=== PATIENT | male | born 1980 | race Caucasian/White ===

== ENCOUNTER 2023-08-27 13:59 | Emergency (ER) | payer MEDICAID, SELFPAY ==
[~2023-08-27] VITALS: Ht 180.3 cm; Wt 87.6 kg
[2023-08-27 17:19] VITALS: BP 148/72; TEMP 97; O2SAT 100
[2023-08-27] MEDS: METHADONE 10MG TAB PO ONE (17:50)
== END 2023-08-27 17:54 | disposition home or self-care (01) ==
LOC: M ED 13:59
DX: Z76.0 Encounter for issue of repeat prescription (principal); F19.10 Other psychoactive substance abuse, uncomplicated; Z79.899 Other long term (current) drug therapy
CPT/HCPCS: 99283; S0109

== ENCOUNTER 2024-01-29 18:24 | Emergency (ER) | payer BC, SELFPAY ==
[~2024-01-29] VITALS: Ht 180.3 cm; Wt 83.7 kg
[2024-01-29 18:31] VITALS: BP 133/82; TEMP 98.2; O2SAT 97
== END 2024-01-29 20:48 | disposition left against medical advice (07) ==
LOC: M ED 18:24
DX: Z53.21 Procedure and treatment not carried out due to patient leaving prior to being seen by health care provider (principal)

== ENCOUNTER 2024-02-02 06:55 | Emergency (ER) | payer BC ==
[~2024-02-02] VITALS: Ht 180.3 cm; Wt 80.2 kg
[2024-02-02 07:00] VITALS: BP 160/110; TEMP 97.8; O2SAT 99
[2024-02-02] MEDS ORDERED: METH10CO PO (09:09)
[2024-02-03] MEDS ORDERED: PROT1TAB2 PO (21:52)
== END 2024-02-02 11:35 | disposition left against medical advice (07) ==
LOC: M ED 06:55
DX: Z53.21 Procedure and treatment not carried out due to patient leaving prior to being seen by health care provider (principal)

== ENCOUNTER 2024-02-02 08:59 | Emergency (ER) | payer BC ==
[~2024-02-02] VITALS: Ht 185.4 cm; Wt 80.2 kg
[2024-02-02] MEDS ORDERED: METH10CO PO (09:09)
[2024-02-02 10:20] LABS: BASO % 0.5 % (0.0-1.0); EOS # 0.1 10^3/uL (0.0-0.5); EOS % 1.1 % (0.0-3.0); HEMATOCRIT 42.2 % (42.0-52.0); HEMOGLOBIN 14.3 g/dl (13.5-17.5); LYMPH % 17.4 % (24.0-44.0); MEAN CORPUSCULAR HEMOGLOBIN 31.8 pg (27.0-33.0); MEAN CORPUSCULAR HGB CONC 33.9 g/dl (32.0-36.5); MONO # 0.5 10^3/uL (0.0-0.8); MONO % 8.8 % (2.0-8.0); NEUTROPHILS % 71.8 % (36.0-66.0); PLATELET COUNT, AUTOMATED 143 10^3/uL (150-450); RED BLOOD COUNT 4.49 10^6/uL (4.30-6.10); WHITE BLOOD COUNT 5.6 10^3/uL (4.0-10.0)
[2024-02-02 10:42] LABS: INR 1.01; PARTIAL THROMBOPLASTIN TIME 25.3 SECONDS (24.8-34.2)
[2024-02-02 10:44] LABS: LIPASE 31 U/L (12-53)
[2024-02-02 10:45] LABS: CK-MB VALUE MASS < 1.0 NG/ML (<3.6)
[2024-02-02 10:46] LABS: ALBUMIN 3.9 G/DL (3.2-5.2); ALKALINE PHOSPHATASE 91 U/L (46-116); ALT/SGPT 18 U/L (7.0-40); AST/SGOT 16 U/L (<34); BILIRUBIN,DIRECT 0.1 MG/DL (<0.4); BILIRUBIN,TOTAL 0.4 MG/DL (0.3-1.2); BLOOD UREA NITROGEN 13 MG/DL (9-23); CALCIUM LEVEL 9.1 MG/DL (8.5-10.1); CARBON DIOXIDE LEVEL 29 MMOL/L (20-31); CHLORIDE LEVEL 107 MMOL/L (98-107); CREATININE FOR GFR 0.81 MG/DL (0.70-1.30); GLOMERULAR FILTRATION RATE > 60.0 (>60); GLUCOSE, FASTING 93 MG/DL (60-100); POTASSIUM SERUM 4.3 MMOL/L (3.5-5.1); SODIUM LEVEL 139 MMOL/L (136-145)
[2024-02-02 10:49] LABS: THYROID STIMULATING HORMONE 1.487 uIU/ML (0.55-4.78)
[2024-02-02 10:50] LABS: FREE T4 1.16 NG/DL (0.89-1.76)
[2024-02-02 10:51] LABS: CPK CREATINE PHOSPHOKINASE 69 U/L (46-171); MB/CK RELATIVE INDEX 1.44 (< OR =4)
[2024-02-02 11:35] LABS: CK-MB VALUE MASS < 1.0 NG/ML (<3.6)
[2024-02-02 11:37] LABS: CPK CREATINE PHOSPHOKINASE 58 U/L (46-171); MB/CK RELATIVE INDEX 1.72 (< OR =4)
[2024-02-02 13:45] VITALS: TEMP 97.7
[2024-02-02 13:46] VITALS: O2SAT 98
[2024-02-02 14:01] VITALS: BP 158/100
[2024-02-03] MEDS ORDERED: PROT1TAB2 PO (21:52)
== END 2024-02-02 14:05 | disposition home or self-care (01) ==
LOC: M ED 08:59
DX: I10 Essential (primary) hypertension (principal); B34.9 Viral infection, unspecified; F17.290 Nicotine dependence, other tobacco product, uncomplicated

== ENCOUNTER 2024-02-03 18:16 | Emergency (ER) | payer BC ==
[~2024-02-03] VITALS: Ht 180.3 cm; Wt 82.1 kg
[~2024-02-03 18:16] MED LIST: METH10CO PO
[2024-02-03 19:02] LABS: BASO # 0.1 10^3/uL (0.0-0.2); EOS # 0.2 10^3/uL (0.0-0.5); EOS % 2.2 % (0.0-3.0); HEMATOCRIT 42.4 % (42.0-52.0); HEMOGLOBIN 14.3 g/dl (13.5-17.5); LYMPH % 29.6 % (24.0-44.0); MEAN CORPUSCULAR HEMOGLOBIN 31.8 pg (27.0-33.0); MEAN CORPUSCULAR HGB CONC 33.7 g/dl (32.0-36.5); MEAN CORPUSCULAR VOLUME 94.4 fl (80.0-96.0); MONO # 0.6 10^3/uL (0.0-0.8); NEUTROPHILS # 3.9 10^3/uL (1.5-8.5); NEUTROPHILS % 58.1 % (36.0-66.0); PLATELET COUNT, AUTOMATED 192 10^3/uL (150-450); RED BLOOD COUNT 4.49 10^6/uL (4.30-6.10); WHITE BLOOD COUNT 6.7 10^3/uL (4.0-10.0)
[2024-02-03] MEDS ORDERED: NITROGLYCERIN 0.4MG SUBL TABLET SL PRN (19:15)
[2024-02-03] MEDS: ASPIRIN 81MG CHEW TABLET PO ONE (19:20)
[2024-02-03 19:33] LABS: CK-MB VALUE MASS < 1.0 NG/ML (<3.6)
[2024-02-03 19:34] LABS: LIPASE 40 U/L (12-53)
[2024-02-03 19:35] LABS: ALBUMIN 3.9 G/DL (3.2-5.2); ALKALINE PHOSPHATASE 100 U/L (46-116); ALT/SGPT 18 U/L (7.0-40); AST/SGOT 11 U/L (<34); BILIRUBIN,DIRECT < 0.1 MG/DL (<0.4); BILIRUBIN,TOTAL 0.3 MG/DL (0.3-1.2); BLOOD UREA NITROGEN 11 MG/DL (9-23); CALCIUM LEVEL 9.6 MG/DL (8.5-10.1); CARBON DIOXIDE LEVEL 32 MMOL/L (20-31); CHLORIDE LEVEL 103 MMOL/L (98-107); CREATININE FOR GFR 0.86 MG/DL (0.70-1.30); GLOMERULAR FILTRATION RATE > 60.0 (>60); GLUCOSE, FASTING 83 MG/DL (60-100); POTASSIUM SERUM 3.8 MMOL/L (3.5-5.1); SODIUM LEVEL 139 MMOL/L (136-145); TOTAL PROTEIN 7.2 G/DL (5.7-8.2)
[2024-02-03 19:36] LABS: CPK CREATINE PHOSPHOKINASE 68 U/L (46-171); MB/CK RELATIVE INDEX 1.47 (< OR =4)
[2024-02-03 19:58] LABS: CK-MB VALUE MASS < 1.0 NG/ML (<3.6)
[2024-02-03 20:00] LABS: CPK CREATINE PHOSPHOKINASE 59 U/L (46-171); MB/CK RELATIVE INDEX 1.69 (< OR =4)
[2024-02-03] MEDS ORDERED: ISOVUE-370 76% 100ML VIAL As Ordered ONE (20:10)
[2024-02-03] MEDS: ONDANSETRON 4MG 2ML VIAL IV ONE (21:46)
[2024-02-03 21:49] VITALS: BP 152/68; TEMP 98.7; O2SAT 98
[2024-02-03] MEDS ORDERED: PROT1TAB2 PO (21:52)
== END 2024-02-03 22:14 | disposition home or self-care (01) ==
LOC: M ED 18:16
DX: R07.9 Chest pain, unspecified (principal); I10 Essential (primary) hypertension; Z87.891 Personal history of nicotine dependence; Z79.899 Other long term (current) drug therapy
CPT/HCPCS: 71045; 71275; 80048; 80076; 82550; 82553; 83690; 84484; 85025; 87486; 87581; 87633; 87798; 93005; 93041; 93971; 94760; 96374; 99285; J2405; Q9967